=== PATIENT | male | born 1980 | race Caucasian/White ===

== ENCOUNTER 2024-01-27 19:20 | Emergency (ER) | payer BC ==
[2024-01-27] MEDS: methylPREDNISolone Sodium Succinate 125 MG/2 ML SDV IVPUSH ONE (19:46)
[2024-01-27] MEDS: Albuterol/Ipratropium 3.0-0.5 MG/3 ML Neb Soln NEB ONE ×2 (19:48→20:28)
[2024-01-27 19:51] LABS: BASOPHILS ABSOLUTE AUTO 0.1 K/mm3 (0.0-0.2); BASOPHILS PERCENT AUTO 0.4 % (0.0-1.0); EOSINOPHILS ABSOLUTE AUTO 0.2 K/mm3 (0.0-0.4); HEMATOCRIT 53.5 % (42.0-52.0); HEMOGLOBIN 18.3 gm/dl (14.0-18.0); IMMATURE GRAN ABSOLUTE AUTO 0.07 K/mm3 (0.00-0.05); IMMATURE GRAN PERCENT AUTO 0.4 % (0.0-0.4); LYMPHOCYTES ABSOLUTE AUTO 1.5 K/mm3 (1.0-4.8); LYMPHOCYTES PERCENT AUTO 9.6 % (24.0-44.0); MEAN CORPUSCULAR HEMOGLOBIN 29.3 pg (28.0-32.0); MEAN CORPUSCULAR HGB CONC 34.2 g/dl (32.0-36.0); MEAN CORPUSCULAR VOLUME 85.7 fl (83.0-99.0); MEAN PLATELET VOLUME 11.3 fl (9.4-12.4); MONOCYTES ABSOLUTE AUTO 1.1 K/mm3 (0.0-0.8); MONOCYTES PERCENT AUTO 6.7 % (0.0-8.0); NEUTROPHILS ABSOLUTE AUTO 13.1 K/mm3 (1.8-7.7); NEUTROPHILS PERCENT AUTO 81.9 % (41.0-71.0); PLATELET COUNT,PLT 176 K/mm3 (150-400); RED BLOOD CELL COUNT 6.24 M/mm3 (4.52-5.90); WHITE BLOOD CELL COUNT,WBC 15.97 K/mm3 (3.9-11.3)
[2024-01-27 20:12] LABS: A/G RATIO 1.1 (1-2); ANION GAP 13.5 (5-15); BILIRUBIN TOTAL 0.5 mg/dL (0.2-1.0); CALCIUM 9.4 mg/dL (8.5-10.1); EST CRCL DRUG DOSING (CG) 73.61 mL/min; POTASSIUM,K 3.5 mEq/L (3.5-5.1); PROTEIN TOTAL,TP 7.5 g/dl (6.4-8.2)
[2024-01-27 20:41] LABS: CORONAVIRUS COVID-19 NAA NEGATIVE (NEGATIVE); INFLUENZA A NAA NEGATIVE (NEGATIVE); RESPIRATORY SYNCYTIAL VIR NAA NEGATIVE (NEGATIVE)
== END 2024-01-27 21:31 | disposition home or self-care (01) ==
LOC: JD.ED 19:20
DX: J45.901 Unspecified asthma with (acute) exacerbation (principal); Z79.899 Other long term (current) drug therapy
CPT/HCPCS: 0241U; 36415; 71045; 80053; 85025; 94640; 96374; 99285; J2919; 99284; J7620-GY

== ENCOUNTER 2024-04-13 10:08 | Emergency (ER) | payer BC ==
[2024-04-13] MEDS: Phenol 1.4% Oral Spray 177 ML Bottle MUCMEM PRN (11:50)
== END 2024-04-13 12:07 | disposition home or self-care (01) ==
LOC: JD.ED 10:08
DX: J06.9 Acute upper respiratory infection, unspecified (principal); H60.93 Unspecified otitis externa, bilateral; J45.909 Unspecified asthma, uncomplicated; E11.9 Type 2 diabetes mellitus without complications; Z79.51 Long term (current) use of inhaled steroids; Z79.899 Other long term (current) drug therapy
CPT/HCPCS: 87428; 87651; 99284; A9270